=== PATIENT | female | born 1985 | race Caucasian/White ===

== ENCOUNTER 2023-11-19 20:52 | Emergency (ER) | payer OTHER, SELFPAY ==
[2023-11-19] VITALS (15 sets, daily range): BP systolic 103–135; BP diastolic 67–85; PULSE 73–88; RESP 18–20; TEMP 36.7; O2SAT 99–100; BMI 24.0
--- NOTE | 2023-11-19 21:00 | CRLHL7_ITS ---
For Patients: As a result of the Century Cures Act, medical imaging exams and procedure reports are released immediately into your electronic medical record. You may view this report before your referring provider. If you have questions, please contact your health care provider. INDICATION: Fell per [place], shoulder pain. TECHNIQUE: Three views of the right shoulder. FINDINGS: Acute comminuted and displaced fracture of the distal right clavicle. There is also a comminuted fracture of the right scapula. Glenohumeral and AC joints are intact. Acute fractures of the right 4th, 5th, and 6th ribs. Dictated by Gamaliel Noguera MD @ 11/19/2023 9:42:47 PM (Electronically Signed)
--- NOTE | 2023-11-19 21:00 | ED.GENADULT ---
HPI - General Adult General Chief complaint: Shoulder Injury/Pain Stated complaint: Fell off horse, hit head/R shoulder Time Seen by Provider: 11/19/23 20:54 History of Present Illness HPI narrative: This 38-year-old female comes in because of an injury that occurred about an hour prior to arrival. She was riding a horse and fell off onto her right shoulder. She did not have loss of consciousness. She had initial lightheadedness because of severe pain but was soon able to get up and ambulate. She came in by private vehicle and is reporting pain in her right shoulder but no other injury. Related Data Home Medications ?Medication ?Instructions ?Recorded ?Confirmed No Known Home Medications 11/19/23 11/19/23 Allergies Allergy/AdvReac Type Severity Reaction Status Date / Time No Known Drug Allergies Allergy Verified 11/19/23 21:04 Review of Systems Status of ROS: Reports: 10 or more systems reviewed and unremarkable except as noted in History and below Narrative: Constitutional: No fevers, no weight gain or loss. Eyes: No discharge. No vision changes. HENT: No congestion, no sore throat, no ear pain. Cardiovascular: No chest pain, no palpitations. Respiratory: No shortness of breath, no wheezes, no cough. Gastrointestinal: No abdominal pain, no vomiting, no diarrhea. Genitourinary: No dysuria, no hematuria. Musculoskeletal: Right shoulder injury. Skin: No rashes, no pruritis. Neurological: No dizziness, weakness, sensory change, speech change. Endo/Heme/Allergies: No bruising or bleeding. No polydipsia. Pysch: no suicidality, no anxiety, no insomnia. All other systems reviewed and are negative. [facility] Medical History (Updated 11/19/23 @ 23:21 by Winston Arciniega MD) No significant past medical history Surgical History (Updated 11/19/23 @ 21:10 by Jose Osorio RN) No significant past surgical history Social History Smoking Status: Never smoker Second hand tobacco smoke exposure: No How often do you have a drink containing alcohol: never AUDIT-C Alcohol total score: 0 Non-prescribed substance use: denies use Exam Narrative: Exam Narrative: Primary Survey: Vital Signs are within normal limits. Airway: Open. Breathing: Easy. Circulation: no obvious bleeding; normal capillary refill. Disability: GCS is 15. Normal pupillary response and motor movements. Secondary Survey: Head: Normocephalic Neck: No midline tenderness. ROM intact. Chest: Non tender. No external signs of trauma. Abdomen: Non tender. No rebound tenderness. Normal bowel sounds. Pelvis/Genitals: No tenderness to A/P and lateral stress. No blood at the urethral meatus. Extremities: Pain in the right shoulder with no external sign of swelling or deformity. Back: No midline tenderness. No sign of injury. Primary and Secondary surveys are completed. The patient's GCS is 15. Const: Vital Signs, click to edit/add: Vital Signs - 24 hr 11/19/23 21:00 11/19/23 21:02 11/19/23 21:10 Temperature 98.1 F 98.1 F Pulse Rate Pulse Rate [Right Pulse Oximeter] 75 75 Respiratory Rate 18 20 Blood Pressure Blood Pressure [Ri ght Upper Arm] 122/85 135/75 Pulse Oximetry 100 99 100 Oxygen Delivery Me thod Room Air Room Air 11/19/23 21:20 11/19/23 21:30 11/19/23 21:32 Temperature 98.1 F 98.1 F Pulse Rate 79 Pulse Rate [Right Pulse Oximeter] 73 79 Respiratory Rate 20 20 20 Blood Pressure 103/67 Blood Pressure [Ri ght Upper Arm] 114/79 103/67 Pulse Oximetry 100 100 100 Oxygen Delivery Me thod Room Air Room Air 11/19/23 21:40 11/19/23 21:42 11/19/23 21:50 Temperature 98.1 F 98.1 F Pulse Rate 80 Pulse Rate [Right Pulse Oximeter] 75 76 Respiratory Rate 20 20 20 Blood Pressure 117/72 Blood Pressure [Ri ght Upper Arm] 117/72 119/80 Pulse Oximetry 100 100 100 Oxygen Delivery Me thod Room Air Room Air 11/19/23 21:51 11/19/23 22:00 Temperature 98.1 F Pulse Rate 88 Pulse Rate [Right Pulse Oximeter] Respiratory Rate 20 Blood Pressure 119/84 Blood Pressure [Ri ght Upper Arm] Pulse Oximetry 100 Oxygen Delivery Me thod Course Vital Signs Vital signs: Initial Vital Signs Pulse Oximetry 100 11/19/23 21:00 Vital Signs Pulse Oximetry 100 11/19/23 21:00 Temperature 98.1 F 11/19/23 22:00 Pulse Rate 88 11/19/23 21:51 Respiratory Rate 20 11/19/23 21:51 Blood Pressure 119/84 11/19/23 21:51 Pulse Oximetry 100 11/19/23 21:51 Oxygen Delivery Method Room Air 11/19/23 21:50 Medications Administered Medications: Discontinued Medications Generic Name Dose Route Start Last Admin Trade Name Kyle PRN Reason Stop Dose Admin Hydrocodone Bitart/Acetaminophen 1 tab 11/19/23 21:53 11/19/23 22:00 Hydrocodone-Acetamin 5-325 Mg 1 Tab PO 11/19/23 21:54 1 tab ONCE ONE Administration Lorazepam 0.5 mg 11/19/23 21:53 11/19/23 22:00 Lorazepam 0.5 Mg Tablet PO 11/19/23 21:54 0.5 mg ONCE ONE Administration Medical Decision Making MDM Narrative Medical decision making narrative: This patient came in by private vehicle because of an injury to her right shoulder after falling from a horse. She states that she did hit her head but does not complain of a headache. She was wearing a helmet. She thinks that she might have broken something in her right shoulder. A trauma team activation was considered but given the focal symptoms of right shoulder discomfort I did not call a trauma team activation. An x-ray is obtained of the right shoulder which shows evidence of a clavicle fracture and scapular fracture. There is also evidence of fractures of the 4th through 6th ribs. Her lung bajwa appear normal. I then ordered CT imaging of her head, C-spine, and chest. Head and C-spine returned negative. CT scan of the chest confirms what was seen on x-ray with the evidence of a fracture of the 7th rib also. I did consult with orthopedic on-call who indicated that her clavicle will need surgery. I also consulted with [facility] regarding multiple rib fractures in a otherwise young healthy person. The patient is not showing any signs of flail chest and has no difficulty with breathing. I did offer admission into the hospital which the patient declined. Guidelines for admission in up-to-date state that in a otherwise healthy person with these rib fractures she is okay to return home with close follow-up. She is aware that she will need a surgery for this clavicle injury and will be called by the orthopedic clinic to arrange for this to occur. The patient received a sling and a [employer] prescription for [place]. Imaging Data CT scan - chest: Radiologist's impression: FINDINGS: Lungs and pleura: No evidence for pulmonary contusion or laceration. Minimal dependent atelectasis in the lungs. No pleural effusion or pneumothorax. Heart and vasculature: Heart size is normal. Thoracic aorta and pulmonary artery are normal in caliber. Lymph nodes/mediastinum: No mediastinal, hilar, or axillary adenopathy. No mediastinal hematoma. Chest wall: No masses. Upper abdomen: Normal. Bones: Acute comminuted displaced fracture of the distal right clavicle. Acute comminuted fracture of the right scapular body. Acute fractures of the lateral right 4th 5th, and 6th ribs, and the posterior right 7th rib. IMPRESSION: 1. No acute injuries in the lung or mediastinum. 2. Acute fractures of the distal right clavicle, right scapula, right 4th through 7th ribs. Discharge Plan Discharge Clinical Impression: Clavicle fracture, Fracture, ribs, Closed right scapular fracture Patient Disposition: Home w/ Parent or Adult Condition: Stable Additional Instructions: Wear sling and use pain medicine as needed and directed. Orthopedic clinic will give a call on Tuesday to arrange for surgery. You may call also if needed by dialing [phone]. Return if worsening. Prescriptions: No Action No Known Home Medications Follow Up/Referrals: Provider,Not a Local [Primary Care Provider] - Stand Alone Forms: [employer] Info Instructions
--- NOTE | 2023-11-19 21:52 | CRLHL7_ITS ---
For Patients: As a result of the Cures Act, medical imaging exams and procedure reports are released immediately into your electronic medical record. You may view this report before your referring provider. If you have questions, please contact your health care provider. INDICATION: Fell from horse TECHNIQUE: CT chest without contrast. COMPARISON: None FINDINGS: Lungs and pleura: No evidence for pulmonary contusion or laceration. Minimal dependent atelectasis in the lungs. No pleural effusion or pneumothorax. Heart and vasculature: Heart size is normal. Thoracic aorta and pulmonary artery are normal in caliber. Lymph nodes/mediastinum: No mediastinal, hilar, or axillary adenopathy. No mediastinal hematoma. Chest wall: No masses. Upper abdomen: Normal. Bones: Acute comminuted displaced fracture of the distal right clavicle. Acute comminuted fracture of the right scapular body. Acute fractures of the lateral right 4th 5th, and 6th ribs, and the posterior right 7th rib. IMPRESSION: 1. No acute injuries in the lung or mediastinum. 2. Acute fractures of the distal right clavicle, right scapula, right 4th through 7th ribs. Please note that all CT scans at this facility use dose modulation, iterative reconstruction, and/or weight-based dosing when appropriate to reduce radiation dose to as low as reasonably achievable. Dictated by Gamaliel Noguera MD @ 11/19/2023 10:49:13 PM (Electronically Signed)
--- NOTE | 2023-11-19 21:52 | CRLHL7_ITS ---
For Patients: As a result of the Cures Act, medical imaging exams and procedure reports are released immediately into your electronic medical record. You may view this report before your referring provider. If you have questions, please contact your health care provider. INDICATION: Fell from horse TECHNIQUE: CT cervical spine without contrast. COMPARISON: None FINDINGS: Vertebrae: Alignment is normal. There are no fractures or suspicious bony lesions. Discs and facet joints: Disc spaces and facets are within normal limits. Extraspinal findings: Prevertebral soft tissues, visualized airway, and visualized lungs are unremarkable. IMPRESSION: Unremarkable cervical spine CT. Please note that all CT scans at this facility use dose modulation, iterative reconstruction, and/or weight-based dosing when appropriate to reduce radiation dose to as low as reasonably achievable. Dictated by Gamaliel Noguera MD @ 11/19/2023 10:41:01 PM (Electronically Signed)
--- NOTE | 2023-11-19 21:52 | CRLHL7_ITS ---
For Patients: As a result of the Century Cures Act, medical imaging exams and procedure reports are released immediately into your electronic medical record. You may view this report before your referring provider. If you have questions, please contact your health care provider. INDICATION: Fell from horse TECHNIQUE: CT head without contrast. COMPARISON: None. FINDINGS: CSF spaces: Within normal limits for age. Brain parenchyma and extra-axial spaces: The gutierrez-white differentiation is normal. No sign of mass, hemorrhage, or midline shift. No extra-axial fluid collection. Skull base and calvarium: The visualized paranasal sinuses and mastoid air cells demonstrate no acute or significant findings. The visualized orbits are grossly unremarkable. No skull fractures. IMPRESSION: Unremarkable noncontrast head CT. Please note that all CT scans at this facility use dose modulation, iterative reconstruction, and/or weight-based dosing when appropriate to reduce radiation dose to as low as reasonably achievable. Dictated by Gamaliel Noguera MD @ 11/19/2023 10:39:28 PM (Electronically Signed)
[2023-11-19] MEDS: LORazepam 0.5 MG TABLET PO (22:00)
[2023-11-19] MEDS: HYDROCODONE-ACETAMIN 5-325 MG 1 TAB PO (22:00)
== END 2023-11-19 23:30 | disposition home or self-care (01) ==
PROVIDERS: Emergency Provider Emergency Medicine Emergency Medical Services
DX: S42.001A Fracture of unspecified part of right clavicle, initial encounter for closed fracture (principal); S42.101A Fracture of unspecified part of scapula, right shoulder, initial encounter for closed fracture; S22.41XA Multiple fractures of ribs, right side, initial encounter for closed fracture; V80.010A Animal-rider injured by fall from or being thrown from horse in noncollision accident, initial encounter
CPT/HCPCS: 70450; 71250; 72125; 73030; 94761; 99284; 99291; A9270